=== PATIENT | female | born 2000 | race Caucasian/White ===

== ENCOUNTER 2023-12-01 02:10 | Inpatient (IN) | payer BC, SELFPAY ==
[2023-11-30 19:17] VITALS: BP 121/90
[2023-11-30 19:32] LABS: Urine Albumin Negative (Neg - Trace); Urine Bilirubin Negative (Negative); Urine Character Clear (Clear); Urine Color Yellow; Urine Glucose Negative (Negative); Urine Ketone 1+ (Negative); Urine Leukocyte Trace (Negative); Urine Nitrite Negative (Negative); Urine Occult Blood Negative (Negative); Urine Urobilinogen Negative (Neg - 1+)
[2023-11-30 19:33] LABS: HCG, Urine Qualitative Screen Negative
[2023-11-30 19:43] LABS: Urine Bacteria Few (Negative); Urine Red Blood Cell 0-2 /HPF (0-2)
--- NOTE | 2023-11-30 20:21 | ED.GENMED ---
History of Present Illness
General
Chief Complaint: Urinary Symptoms
Time Seen by Provider: 11/30/23 19:52
Travel History
Have you had any contact with someone who has COVID-19?: No
Do you have any symptoms of coronavirus? Fever > 100 degrees, chills, cough, shortness of breath, sore throat, loss of taste or smell, muscle aches, or headache?: Yes
Symptoms:: fever
History of Present Illness
History of Present Illness:
23-year-old female presents to the emergency department for evaluation of urinary urgency and 'bladder pressure' ongoing since last week. She was treated by her primary care physician greater than 1 week ago for the symptoms with a 3-day course of
Bactrim, states that symptoms never fully resolved. She does admit she missed a dose of Bactrim last week. Over the past 24 to 48 hours she has developed fevers and chills as well as progressively worsening low back and bilateral flank pain. No
nausea or vomiting. Does continue to have suprapubic pressure and dysuria. Denies any concern for sexually transmitted infection, currently monogamous with her . Denies any vaginal discharge.
Past History
Past History
ED Past Medical History: None; Negative Asthma, HTN, Hypercholesterolemia or NIDDM
ED Past Surgical History: None
Social History
Tobacco: Smoker
Alcohol: Occasional
Personal: Single
Living: with family
Review of Systems
Review of Systems
Allergies reviewed?: Yes
All Other Systems: ROS reviewed and negative except as documented in HPI and ROS
Phy Exam
Physical Exam
Physical Exam:
GEN: Well appearing, NAD, WDWN
HEENT: Oral mucosa moist, no scleral icterus
Cardiac: Tachycardic, regular
Lung: No respiratory distress, no tachypnea
Abdomen: Soft, no anterior abdominal tenderness, no rigidity or suprapubic masses. Bilateral CVA tenderness noted
MSK: No gross deformity or injuries
Skin: Good color, no pallor or jaundice, no rashes
Neuro: AO x3, moves all extremities freely
Psych: Calm, cooperative
Course
Orders/Labs/Results
Orders:
Orders
11/30/23 19:21
Test Result ONCE
11/30/23 19:25
HCG, Urine Qualitative Screen Urgent
Date Specimen was Collected: 11/30/23
Time Specimen was Collected: 19:21
Urinalysis Reflex To Culture Urgent
Date Specimen was Collected: 11/30/23
Time Specimen was Collected: 19:21
Urine Microscopic Reflex Cult Urgent
Urine Culture Urgent
LUCY Source: U
Specimen Description:
Date Specimen was Collected: 11/30/23
Time Specimen was Collected: 19:21
11/30/23 20:19
0.9% Sodium Chloride 1000 ml [Nss] 1,000 ml IV BOLUS
11/30/23 20:20
Test Result ONCE
11/30/23 20:47
Complete Blood Count/With Diff Urgent
Comprehensive Metabolic Panel Urgent
HCG, Serum Qualitative Screen Urgent
Lactic Acid Urgent
Blood Culture Q30M
LUCY Source: Blood/Venous
Specimen Description:
Blood Culture Q30M
LUCY Source: Blood/Venous
Specimen Description:
11/30/23 21:18
Lorazepam [Ativan] 1 mg IV NOW STA
11/30/23 21:44
US Kidneys [US Renal Only W/O Bladder] Urgent
Comment:
Reason For Exam: flank pain/UTI
11/30/23 22:25
Ciprofloxacin 400 mg/[id number] [Cipro 400 mg] 200 ml IV NOW
12/01/23 01:12
Admit/Transfer Patient As Directed
Co-Sign Provider:
Level of Care: Inpatient admission
Assign to:: Medical/Surgical
Physician / Group: Jenniffer Quintana
Diagnosis: acute pyelonephritis
Reason for Hospitalization: acute pyelonephritis
Expected length of stay greater than two midnights?: Yes
ELOS- Estimated Length of Stay in days: 2
I certify the patient meets the requirements for IP care: Yes
Code Status As Directed
Resuscitation Status: Full Code
Abnormal Lab Results
11/30/23 11/30/23
19:25 20:47
RBC 3.90 L 10^6/uL
(4.20-5.40)
Hgb 11.9 L g/dL
(12.0-16.0)
Hct 33.3 L %
(37.0-47.0)
Absolute Neuts (auto) 7.6 H 10^3/uL
(1.4-6.5)
Absolute Lymphs (auto) 1.1 L 10^3/uL
(1.2-3.4)
Absolute Monos (auto) 1.0 H 10^3/uL
(0.1-0.6)
Neutrophils % 77.2 H %
(42.2-75.2)
Lymphocytes % 11.2 L %
(20.5-51.1)
Monocytes % 9.7 H %
(1.7-9.3)
Sodium 131 L mmol/L
(135-145)
Carbon Dioxide 21 L mmol/L
(22-30)
BUN 21 H mg/dl
(7-17)
Urine Ketones 1+ A
(Negative)
Leukocyte Esterase Rfl Trace A
(Negative)
Urine WBC (Reflex) 11-15 A /HPF
(0-5)
Urine Bacteria (Reflex) Few A
(Negative)
11/30/23 20:47
11/30/23 20:47
Vital Signs
Initial and Last Documented VS:
Initial Vital Signs
Temp Pulse Resp BP Pulse Ox
101.3 F H 102 16 121/90 100
11/30/23 19:17 11/30/23 19:17 11/30/23 19:17 11/30/23 19:17 11/30/23 19:17
Last Documented Vital Signs
Temp Pulse Resp BP Pulse Ox
101.3 F H 110 18 123/67 99
11/30/23 19:17 11/30/23 21:01 11/30/23 21:01 11/30/23 21:01 11/30/23 21:01
MDM/Problems Addressed
MDM/Problems Addressed:
Given her failure of outpatient antibiotics and systemic symptoms, clinical presentation is consistent with acute pyelonephritis. Her labs are reassuring, urinalysis weakly positive for UTI likely on account of antibiotics in her system as she has
taken 2 doses of oral ciprofloxacin thus far. I am concerned regarding her rigors as this could represent gram-negative bacteremia. Will admit to the hospitalist service for IV antibiotics
*Critical Care Note
Total Time (30-74mins, 75-104mins- exclusive of procedures): Not Applicable
ED Attending Note
-
Portions of this chart may have been created with voice recognition software.� Occasional wrong word or��sound alike� substitutions may have occurred due to the inherent limitations of voice recognition software.
Discharge Plan
Departure
Patient Disposition: Admit
Date of Disposition: 11/30/23
Time of Disposition: 22:46
Presentation/result/management discussed w/ accepting MD/DO: Hospitalist
Discharge Problem:
Pyelonephritis
Prescriptions:
No Action
ciprofloxacin HCl 500 mg tablet
500 mg PO BID
Referrals:
Alec Lantigua MD [Family Provider] -
Interventions
Interventions:
*Risk Screen - Suicide Last Done: 11/30/23 19:17
*General Assessment Last Done: 11/30/23 19:17
*Neglect/Abuse Screening Last Done: 11/30/23 19:17
ED- Fall Risk Assessment Last Done: 11/30/23 20:06
ED-Female Genitourinary Assessment Last Done: 11/30/23 20:06
Discharge Date and Time
Print Language: PERSIAN
[2023-11-30] MEDS: NSS 1000 IV (20:47)
[2023-11-30 21:01] VITALS: BP 123/67
[2023-11-30 21:02] LABS: % Basophils 0.6 % (0-2); % Eosinophils 1.1 % (0-6); % Immature Granulocytes 0.2 % (0-0.5); % Lymphocytes 11.2 % (20.5-51.1); % Monocytes 9.7 % (1.7-9.3); % Neutrophils 77.2 % (42.2-75.2); Absolute Basophils 0.1 10^3/uL (0-0.2); Absolute Eosinophils 0.1 10^3/uL (0-0.7); Absolute Lymphocytes 1.1 10^3/uL (1.2-3.4); Absolute Neutrophils 7.6 10^3/uL (1.4-6.5); Hematocrit 33.3 % (37.0-47.0); Hemoglobin 11.9 g/dL (12.0-16.0); Mean Corp Hgb Conc. 35.7 g/dL (33.0-37.0); Mean Corpuscular Hgb 30.5 pg (27.0-31.0); Mean Corpuscular Volume 85.4 fL (81.0-99.0); Mean Platelet Volume 9.5 fL (7.4-10.4); Nucleated Red Blood Cells % 0 %; Platelet Count 239 10^3/uL (130-400); Red Cell Dist. Width 12.8 % (11.5-14.5); White Blood Cell Count 9.9 10^3/uL (4.8-10.8)
[2023-11-30 21:11] LABS: HCG, Serum Qualitative Screen Negative
[2023-11-30 21:12] LABS: Lactic Acid 0.7 mmol/L (0.7-2.0)
[2023-11-30 21:15] LABS: ALT (SGPT) 20 U/L (0-35); AST (SGOT) 27 U/L (14-36); Albumin 4.2 g/dl (3.5-5.0); Alkaline Phosphatase 65 U/L (38-126); Blood Urea Nitrogen 21 mg/dl (7-17); Calcium 9.5 mg/dl (8.4-10.2); Carbon Dioxide 21 mmol/L (22-30); Chloride 103 mmol/L (98-107); Glucose 90 mg/dl (70-99); Potassium 3.9 mmol/L (3.5-5.1); Sodium 131 mmol/L (135-145); Total Bilirubin 0.6 mg/dl (0.2-1.3); Total Protein 6.8 g/dl (6.3-8.2); eGFR > 60.00
[2023-11-30] MEDS: ATIVAN 1 MG IV (21:33)
[2023-11-30 23:15] VITALS: BMI 21.0
[2023-11-30] MEDS: CIPRO 400 MG 200 IV (23:27)
[2023-11-30 23:30] VITALS: BMI 21.0
--- NOTE | 2023-12-01 00:06 | HPS.HSE ---
Family Physician
-
Family Physician: Alec Lantigua
Chief Complaint
-
urinary urgency and bladder pressure
History of Present Illness
Ms. Cathie Martinez is a 23 yo woman without significant past medical history with recent outpatient treatment UTI presents to the ER with fever/chills and bilateral flank pain.
Patient had dysuria/pressure starting last week and was prescribed 3 days of Bactrim. She states her symptoms didn't improve. She went to clinic where gave urine sample (pending now in [facility]) and was prescribed Cipro. Patient took 2 doses then had
fever and persistent back pain and came to the ER.
She is awoken from sleep on my interview. Currently stating back pain is better. Continues to have bladder pressure.
No chest pain, no shortness of breath, no nausea/vomiting, normal appetite, no LE swelling, no rash.
Medical History
Past Medical History
Past Medical History: Reports None
Past Surgical History: Reports None
Social History
Tobacco: Smoker
Alcohol: Occasional
Family History
Family History: Not pertinent
Allergies / Home Medications
Allergies reflects when Allergies were last updated in [facility].
Home Medications with original date entered in [facility]
Allergy/Medication List:
Allergies
Allergy/AdvReac Type Severity Reaction Status Date / Time
No Known Allergies Allergy Verified 10/28/19 18:25
Home Medications
ciprofloxacin HCl 500 mg tablet 500 mg PO BID 11/30/23
Review of Systems
-
History Source: Patient
A 12 point ROS was completed and negative except as noted: Yes
Physical Exam
Vital Signs
Vital Signs
Temp Pulse Resp BP Pulse Ox
101.3 F H 110 18 123/67 99
11/30/23 19:17 11/30/23 21:01 11/30/23 21:01 11/30/23 21:01 11/30/23 21:01
Physical Exam
General: No Apparent Distress
HEENT: PERRLA
Respiratory: Clear; No Wheezes
Cardiac: S1/S2 and Regular Rhythm
GI: Soft and Non Tender
Genito-urinary: Other (mild suprapubic tenderness; currently denies CVA tenderness )
Musculoskeletal: No Edema
Skin: Warm and Dry; No Rash
Neuro: AO x 3
Psych: Calm
Laboratory Results
-
11/30/23 20:47
11/30/23 20:47
Laboratory Results
Lactic Acid 0.7 mmol/L (0.7-2.0) 11/30/23 20:47
Total Bilirubin 0.6 mg/dl (0.2-1.3) 11/30/23 20:47
AST 27 U/L (14-36) 11/30/23 20:47
ALT 20 U/L (0-35) 11/30/23 20:47
Alkaline Phosphatase 65 U/L (38-126) 11/30/23 20:47
Data Reviewed
-
Diagnostic Radiology: Report Reviewed by me
Lab Data: Labs Reviewed by me
Impression/Plan
-
Ms. Cathie Martinez is a 23 yo woman without significant past medical history with recent outpatient treatment UTI presents to the ER with fever/chills and bilateral flank pain found to have acute pyelonephritis.
Triage VS: T 101.3, P 102, RR 16, BP 121/90, SpO2 100%
LABS: WBC 9.9, Hg 11.9, PLT 239, Na 131, K+ 3.9, CO2 21, BUN 21, Cr 0.6, Glucose 90, lactate 0.7, liver enzymes WNL, HCG negative
UA 11-15 WBC
Renal US:
IMPRESSION:
No sonographically demonstrable renal calculus. No hydronephrosis.
MAR: IV Cipro, Ativan, fluids in ER
Acute Pyelonephritis
-admit to med/surg
-change abx to IV Ceftriaxone
-F/U blood cultures and urine culture (team to log into [facility] to follow up culture pre-Cipro)
-no hydro or appreciable stone on US
-IVF
-tylenol/toradol PRN
DVT PPx Lovenox subQ
FULL CODE
[2023-12-01 01:38] VITALS: BP 109/57
[2023-12-01] MEDS: NSS 1000 IV (02:56)
[2023-12-01 03:49] VITALS: BMI 24.2
--- NOTE | 2023-12-01 03:49 | PTCARENOTE ---
Pt admitted from ED and arrived around 314. Patient ambulated from the stretcher to the bed. Pt able to answer admission questions. Pt denies any pain and VSS. Fluids initiated per order. Pt oriented to the room and call linn within reach.
[2023-12-01 04:07] VITALS: BP 101/54
[2023-12-01] MEDS: STERILE WATER FOR INJECTION 10 ML IV (04:20)
[2023-12-01] MEDS: ROCEPHIN 1000 MG IV (04:20)
[2023-12-01 07:03] LABS: % Basophils 0.7 % (0-2); % Eosinophils 1.2 % (0-6); % Immature Granulocytes 0.3 % (0-0.5); % Lymphocytes 16.9 % (20.5-51.1); % Monocytes 13.8 % (1.7-9.3); % Neutrophils 67.1 % (42.2-75.2); Absolute Basophils 0.1 10^3/uL (0-0.2); Absolute Eosinophils 0.1 10^3/uL (0-0.7); Absolute Lymphocytes 1.6 10^3/uL (1.2-3.4); Absolute Monocytes 1.3 10^3/uL (0.1-0.6); Absolute Neutrophils 6.2 10^3/uL (1.4-6.5); Hematocrit 33.6 % (37.0-47.0); Hemoglobin 11.4 g/dL (12.0-16.0); Mean Corp Hgb Conc. 33.9 g/dL (33.0-37.0); Mean Corpuscular Hgb 30.5 pg (27.0-31.0); Mean Corpuscular Volume 89.8 fL (81.0-99.0); Mean Platelet Volume 9.8 fL (7.4-10.4); Nucleated Red Blood Cells % 0 %; Platelet Count 228 10^3/uL (130-400); Red Blood Cell Count 3.74 10^6/uL (4.20-5.40); Red Cell Dist. Width 12.8 % (11.5-14.5); White Blood Cell Count 9.2 10^3/uL (4.8-10.8)
[2023-12-01 07:11] LABS: Carbon Dioxide 22 mmol/L (22-30)
[2023-12-01 07:21] LABS: Blood Urea Nitrogen 13 mg/dl (7-17); Calcium 8.6 mg/dl (8.4-10.2); Chloride 109 mmol/L (98-107); Estimated Creatinine Clearance 102 ml/min; Glucose 108 mg/dl (70-99); Magnesium 1.8 mg/dl (1.6-2.3); Potassium 3.8 mmol/L (3.5-5.1); Sodium 135 mmol/L (135-145); eGFR > 60.00
[2023-12-01 07:30] VITALS: BP 94/57
--- NOTE | 2023-12-01 10:16 | W.PN.UPDATE ---
Update Note
Progress Note Update
Seen by Dr. Quintana this morning. Admitted for possible pyelonephritis.
No fevers this morning. Blood pressure is soft. Not tachycardic.
Lab data noted. Await culture data.
Continue with ceftriaxone and follow culture data.
[2023-12-01] MEDS: TYLENOL 650 MG PO ×2 (12:06→20:05)
[2023-12-01 15:00] VITALS: BP 99/68
[2023-12-01] MEDS: TORADOL 10 MG IV (15:41)
--- NOTE | 2023-12-01 15:41 | CM ---
Met with Cathie, her new , and her mother. Cathie and her just got back from [facility] where they were honeymooning.
She is completely independent with all ADLs and IADLs based on observation during my visit in her room.
Plan for discharge to home with no needs once IV ABX are completed.
[2023-12-01] MEDS: ATIVAN 0.5 MG IV (22:38)
[2023-12-01] MEDS: NSS (PRESERVATIVE FREE) 0.25 ML IV (22:43)
[2023-12-01 23:41] VITALS: BP 130/69
[2023-12-02] MEDS: ROCEPHIN 1000 MG IV (03:56)
[2023-12-02] MEDS: STERILE WATER FOR INJECTION 10 ML IV (03:57)
[2023-12-02 07:30] VITALS: BP 108/67
[2023-12-02] MEDS: TORADOL 10 MG IV (09:01)
--- NOTE | 2023-12-02 10:26 | PN.CDI ---
CDI
- -
CDI:
Physician Documentation Request
Admit Date: 12/01/23 02:10
Dear Doctor Bert,
Please review the following and provide your response in the progress notes.
Clinical Indicators:
H+P, 11/30
#...recent outpatient treatment UTI presents to the ER
#...with fever/chills and bilateral flank pain found to have acute pyelonephritis.
#Triage VS: T 101.3, P 102, RR 16, BP 121/90, SpO2 100%
#UA 11-15 WBC
PN, 11/30
#...Admitted for possible pyelonephritis.
#No fevers this morning.
#Blood pressure is soft.
#Not tachycardic.
#Lab data noted. Await culture data.
#Continue with ceftriaxone and follow culture data.
Based on the above and your clinical assessment, please clarify which of the following most accurately describes the status of the patient's infection:
Sepsis, POA, now resolved
Sepsis, likely, suspected, probable diagnosis
Localized Infection Only, Without Systemic Illness
- indicate the site/source, such as UTI, pneumonia etc.
Other
Sepsis
- Systemic manifestations of infection, with 2 or more SIRS criteria which include:
- Fever >100.4 degrees F or hypothermia < 96.8 degrees F
- Leukocytosis - WBC > 12,000 or leukopenia - WBC < 4,000 or > 10% bands
- Tachycardia > 90 beats per minute
- Tachypnea - RR > 20 breaths per minute or PaCO2 , 32mmHg
Source: Merck Manual 2013
- Indicate the known or suspected organism
- Indicate the known or suspected underlying infection, such as UTI, pneumonia or cellulitis
Use of terms such as suspected, likely, concern for, or probable (associated with a specific diagnosis that is being evaluated, monitored, or treated as if it exists) are acceptable and can be coded in the inpatient setting, when documented at the
time of discharge.
Thank you,
Tosha Darnell RN BSN CCDS
CDI Specialist
please contact via tiger text
Please use your independent medical judgment in providing your response.
--- NOTE | 2023-12-02 11:23 | CM ---
Patient seen bedside with mother, reports she is feeling better. Patient remains on IV antibiotics. CM will continue to follow for discharge planning needs.
Plan; home no needs likely.
--- NOTE | 2023-12-02 14:39 | W.PN.HOSP.TC ---
Addendum entered and electronically signed by Wiley Noel MD 12/02/23 17:49:
sepsis POA
Addendum entered and electronically signed by Wiley Noel MD 12/02/23 15:04:
received a fax from PCPs office which shows a urine culture positive for gram-negative rods greater than 100,000 colony count. No further details available.
She had the details with the patient who is very keen to go home as she is feeling well. She took Bactrim for 3 days which did not help but then has Cipro just 2 doses before coming to the hospital because of fever. I do not consider this is a
failure. Fluoroquinolones are preferred agents for pyelonephritis. She still has 4 more days of the dose left at home and I prescribed another 4 days to complete total of 10 days of antibiotics for her pyelonephritis. Advised to follow with PCP
regarding urine culture data. Advised to return to ER if she has recurrent fevers or left-sided flank pain worsening.
Original Note:
Today's Communication/Plan
-
Follow Ucx report
DC planning
Assessment / Plan
Assessment / Plan
Acute pyelonephritis-patient with recent cystitis symptoms presented after having finished 3 days of antibiotics with left flank pain, urinary urgency and bladder pressure. She also had fever chills. Ultrasound abdomen shows no obstruction or
renal stone. No prior history of nephrolithiasis. Today she is feeling better. No fever for more than 24 hours. Tolerating diet. Culture data including urine and blood cultures are negative. Called the PCP office to have not received the urine
culture report yet. They will fax it to my office when available. patient keen to go home. Will see how she does in the day and if continued improvement then dc on Cipro and follow closely as OP
Anticipated Discharge: Today
Subjective/Interval History
-
Date of Service: December 02, 2023
She did not feel well last night. She had a lot of nausea. She had some sweats but no fevers.
She continues to have mild left flank discomfort. No pain. Worse with cough.
No further dysuria or hematuria. No frequency of urine.
Feeling better comparatively.
Objective Data
-
Vital Signs:
Vital Signs
Temp Pulse Resp BP Pulse Ox
98.5 F 73 16 108/67 99
12/02/23 12:48 12/02/23 07:30 12/02/23 07:30 12/02/23 07:30 12/02/23 07:30
I&O
12/01/23 12/02/23 12/03/23
06:59 06:59 06:59
Intake Total 220 / 220 1200 / 1200
Balance 220 / 220 1200 / 1200
Review of Systems
-
Constitutional: Denies Fever or Chills
EENT: Denies Sore Throat
Respiratory: Denies Cough or Trouble Breathing
Cardiac: Denies Chest Pain
Neuro: Denies Dizzy
Physical Exam
-
General: No Apparent Distress
HEENT: Moist Mucous Membranes
Respiratory: Clear to Auscultation
Cardiac: Regular Rhythm and S1/S2
GI: Soft, Nontender, Nondistended and Normal Bowel Sounds
Genito-urinary: Costovertebral Angle Tend (mild in left CP area)
Neuro: AO x 3
Psych: Calm
Data Reviewed
-
Labs: Labs Reviewed by me
[2023-12-02 15:03] VITALS: BP 101/57
--- NOTE | 2023-12-02 15:06 | W.DS.TRANS ---
DC Summary - Trust Administrative Assistant
-
Discharge Instructions:
Discharge Diagnosis/Procedures Left sided pyelonephritis
Diet Regular
Activity As tolerated
Driving Restrictions As prior to admission
Bathing Restrictions None
Instructions:
Stand-Alone Forms:
Changes to Home Medications: No
Discharge Medications:
DC Medications w/original date entered in [facility]
acetaminophen 325 mg tablet 650 mg (2 x 325 mg) PO Q4HPRN PRN mild pain/MADDOX/temp> 100.4F #1 tab 12/02/23
ciprofloxacin HCl 500 mg tablet 500 mg PO BID Infection #8 tabs 12/02/23
Home Medication Changes
Pending Results: No
--- NOTE | 2023-12-02 16:38 | W.DCSUMMARY ---
Discharge Summary
Discharge Data
Date of Admission: 12/01/23
Date of Discharge: 12/02/23
-
Pending Results: No
Hospital Course
Primary diagnosis:
Acute left-sided pyelonephritis
Hospital course:
23-year-old lady who was in outpatient treatment for UTI presented to ER with fever and chills and bilateral flank pain which more settled down to the left side.
She had dysuria and bladder pressure and was prescribed 3 days of antibiotics and the symptoms did not resolve so she was prescribed Cipro and took 2 doses of Cipro and had a fever and persistent back pain so came into the ER.
She was febrile here. Ultrasound showed no evidence of hydronephrosis or ureteral calculi. No history of nephrolithiasis.
she was placed on empirical ceftriaxone. Urine culture and blood cultures were negative. She was on antibiotics before coming in.
She started to feel better. She was tolerating diet. No other symptoms resolved. She might left flank costovertebral tenderness.
Her outside urine culture was growing gram-negative rods but culture was not finalized.
In view of suspicion of left-sided pyonephritis she was put on ciprofloxacin otherwise 8 more days of treatment. Advised to follow-up urine culture data with the PCP.
Discharge Plan
-
Patient Disposition: Home (Routine Discharge)
Discharge Diagnosis/Procedures: Left sided pyelonephritis
Diet: Regular
Activity: As tolerated
Driving Restrictions: As prior to admission
Bathing Restrictions: None
Referrals:
Alec Lantigua MD [Family Provider] - in less than 1 week
Prescriptions:
New
acetaminophen 325 mg Tablet
650 mg PO Q4HPRN PRN (Reason: mild pain/MADDOX/temp> 100.4F) Qty: 1 0RF
Continued
ciprofloxacin HCl 500 mg tablet
500 mg PO BID Qty: 8 0RF
Rx Instructions:
Total of 8 more days of antibiotics to be completed
Discharge Orders:
Discharge Patient (As Directed); Ordered 12/02/23
Ordered By: Wiley Noel
Discharge Date and Time
Discharge Date/Time: 12/02/23 16:08
Print Language: NEPALI
== END 2023-12-02 16:08 | disposition home or self-care (01) | DRG 872 ==
LOC: 4 WEST ACU 02:10
PROVIDERS: Emergency Medicine; Physician Assistant; ADMITTING PHYSICIAN Student in an Organized Health Care Education/Training Program; ATTENDING PHYSICIAN Internal Medicine; EMERGENCY PHYSICIAN Emergency Medicine; FAMILY PHYSICIAN Family Medicine
DX: A41.9 Sepsis, unspecified organism (principal); N10 Acute pyelonephritis; F17.200 Nicotine dependence, unspecified, uncomplicated
CPT/HCPCS: 76775; 80048; 80053; 81003; 81015; 81025; 83605; 83735; 84703; 85025; 87040; 87086; 96361; 96374; 96375; 99284